=== PATIENT | male | born 1995 | race Caucasian/White ===

== ENCOUNTER → 2023-08-10 15:40 | Outpatient (BNVA) | payer BC, SELFPAY | PROVIDERS: PCP Registered Nurse; Visit Provider Physician Assistant ==

== ENCOUNTER → 2023-08-10 15:40 | Outpatient (BNVA) | payer BC, SELFPAY | PROVIDERS: PCP Registered Nurse; Visit Provider Physician Assistant ==

== ENCOUNTER 2023-09-08 08:36 | Outpatient (REF) | payer BC, SELFPAY ==
--- NOTE | ~2023-09-08 | XR_ITS ---
EXAMINATION: XR CHEST 2 VIEWS CLINICAL INFORMATION: Morbid obesity. COMPARISON: None. TECHNIQUE: Frontal and lateral views of the chest were obtained. FINDINGS: The heart, great vessels, pulmonary vasculature and mediastinum are normal. The lungs show no focal infiltrate, effusion or pneumothorax. There is no acute osseous abnormality. XR/XR chest 2V IMPRESSION: No active cardiopulmonary disease.
--- NOTE | 2023-09-08 10:10 | ECG_ITS ---
Test Reason : e66.01 Blood Pressure : / mmHG Vent. Rate : 067 BPM Atrial Rate : 067 BPM P-R Int : 132 ms QRS Dur : 088 ms QT Int : 390 ms P-R-T Axes : 031 024 015 degrees QTc Int : 412 ms Normal sinus rhythm Normal ECG No previous ECGs available Referred By: Bhakti Linares Electronically Signed By:PHOENIX STORY MD
[2023-09-08 10:17] LABS: MANUAL DIFF FLAG NO
[2023-09-08 11:14] LABS: Basophils Absolute Auto 0.1 X10*3/uL (0.0-0.2); Basophils Percent Auto 1.1 % (0-2); Eosinophils Absolute Auto 0.1 X10*3/uL (0.0-0.4); Eosinophils Percent Auto 1.2 % (0-4); Estimated Average Glucose 108 mg/dL; Hematocrit 41.7 % (42.0-52.0); Hemoglobin 13.8 g/dl (14.0-18.0); Hemoglobin A1c % 5.4 % (<6.0); Imm Gran Abs Auto 0.03 X10*3/uL (0.00-0.03); Imm Gran Pct Auto 0.4 % (0.0-0.4); Lymphocytes Absolute Auto 1.6 X10*3/uL (1.2-4.9); Lymphocytes Percent Auto 21.3 % (20-40); Mean Corpuscular HGB Conc 33.1 g/dl (31.0-36.0); Mean Corpuscular Hemoglobin 27.4 pg (27.0-33.0); Mean Corpuscular Volume 82.7 fL (80.0-98.0); Mean Platelet Volume 10.4 fL (9.4-12.4); Monocytes Absolute Auto 0.5 X10*3/uL (0.1-1.2); Monocytes Percent Auto 6.6 % (2-11); Neutrophils Percent Auto 69.4 % (45-73); Platelet Count 205 X10*3/uL (160-400); Red Blood Count 5.04 X10*6/uL (4.60-5.80); Red Cell Distribution Width 13.2 % (11.0-16.0); White Blood Count 7.3 X10*3/uL (4.8-10.8)
[2023-09-08 11:51] LABS: Alanine Aminotransferase 40 U/L (0-40); Albumin Level 4.4 g/dL (3.5-5.0); Alkaline Phosphatase 54 U/L (39-117); Anion Gap 9 (12-20); Aspartate Amino Transferase 24 U/L (5-37); Bilirubin Total 0.8 mg/dL (0.0-1.0); Blood Urea Nitrogen 11 mg/dL (9-16); C Reactive Protein 2.07 mg/dL (< or = 0.50); Calcium 9.6 mg/dL (8.4-10.2); Carbon Dioxide 28 mmol/L (22-29); Chloride 105 mmol/L (96-108); Cholesterol 143 mg/dL (<200); Estimated Glomerular Filt Rate > 60; Glucose Random 90 mg/dL (60-115); HDL Cholesterol 35 mg/dL (>40); Iron 100 mcg/dL (45-160); LDL Cholesterol Calculated 84 mg/dL (<100); Percent Iron Saturation 43 % (15-50); Sodium 138 mmol/L (135-145); Total Iron Binding Capacity 235 mcg/dL (228-428); Triglycerides 124 mg/dL (<150); Unsaturated Iron Binding 135 ug/dL
[2023-09-08 12:08] LABS: Ferritin 129 ng/mL (20-250)
[2023-09-08 12:15] LABS: Folate 16.3 ng/mL (> or = 4.0); Vitamin B12 754 pg/mL (200-900)
[2023-09-08 12:18] LABS: Insulin 21 uU/mL (2-29)
[2023-09-09 15:54] LABS: Calcium (PTHI) 9.5 mg/dL (8.6-10.3); PTHI 22 pg/mL (16-77)
[2023-09-10 10:50] LABS: H Pylori Breath Test Negative (Negative)
[2023-09-11 16:57] LABS: Zinc 101 mcg/dL (60-130)
[2023-09-12 15:19] LABS: Vitamin B1 11 nmol/L (8-30)
[2023-09-15 02:09] LABS: Vitamin A 43 mcg/dL (38-98)
== END 2023-09-08 08:37 | disposition home or self-care (01) ==
LOC: HO.LAB 08:36
PROVIDERS: PCP Registered Nurse; Visit Provider Physician Assistant
DX: Z01.818 Encounter for other preprocedural examination (principal); E66.01 Morbid (severe) obesity due to excess calories; I10 Essential (primary) hypertension; F41.8 Other specified anxiety disorders
CPT/HCPCS: 36415; 71046; 80053; 80061; 82306; 82607; 82728; 82746; 83013; 83036; 83525; 83540; 83970; 84425; 84443; 84590; 84630; 85025; 86140; 93005; 99211

== ENCOUNTER 2023-09-08 08:36 | Outpatient (AMB) | payer BC, SELFPAY ==
--- NOTE | 2023-09-08 08:53 | A.OFFVIS_ITS ---
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 His goal is to be healthy for his upcoming children and weigh about 260 lbs. he reports first being concerned about his weight since childhood. he has tried multiple methods of weight loss including WW without permanent results. he lives with huis . he works 6 days per week from 5am - 5:30 pm. With work spends nights away from home with work. he wakes at: 4am bed at 9pm Breakfast: 5am - 1 large coffee DD with cream and flavored syrup, breakfast sandwich 10 am - yogurt with cheesesticks with ch ips and granola bar. water or Powerade 0. Lunch: 12 pm - sandwich - ham and cheese, 2 cheesticks , chips and yogurt. water Dinner: 6pm - last night - air fried shrimp with bread and izzy sauce, onion rings. water. (large portions) After dinner: none Other snacks: as above Liquids: No soda, ocassional furit juice and sweetened drinks. milk1% Alcohol intake: once per year, tobacco: none, marijuana: none Exercise: has membership - last gone 3 years ago. JAYLEN: 1 ESS: 2 GERD:0 QOL: 59 [facility] Surgical History (Updated 09/08/23 @ 09:05 by Lacie Juárez CMA) No history of previous surgery Family History Paternal Grandfather Colon cancer Maternal Grandfather Prostate cancer Paternal Grandmother Skin cancer Breast cancer in situ (Reviewed 09/08/23 @ 09:06 by HA Ahn Alcohol intake: current Alcohol intake frequency: holidays/special occasions only Patient Tobacco Use Status: Never used Tobacco Physical Exam Vital Signs: Last Vital Signs Temp 97.1 F 09/08/23 09:08 Pulse 79 09/08/23 09:08 BP 141/75 H 09/08/23 09:08 Pulse Ox 97 09/08/23 09:08 Oxygen Delivery Method Room Air 09/08/23 09:08 BMI result Body Mass Index 53.3 Const General: cooperative, no acute distress and well developed Nutritional Appearance: obese Orientation/consciousness: patient oriented x3 HEENT Head: Yes normal to inspection Neck Neck: Yes normal visual inspection Thyroid: Thyroid normal Resp Effort & Inspection: normal respiratory effort Auscultation: clear to auscultation bilaterally Cardio Rate: regular rate Rhythm: regular rhythm Heart sounds: S1 normal heart sound present, S2 normal heart sound present and no murmurs GI Inspection: No distended, Yes Abdominal panniculus present, Yes obesity and Yes striae Palpation (GI): Soft to palpation, nontender and no guarding Skin General skin exam: no rashes or lesions noted and other (warm and dry) Wounds: no wounds Hair: normal Neuro General: patient oriented x3 Extrem General: Yes no pedal edema and Yes no calf tenderness Psych Attitude: cooperative Thought process: Normal thought process present Thought content: Normal thought content present Insight: Good insight present (Psych) Judgement: Good judgement present (Psych) Assessment & Plan Assessment & Plan (1) Morbid obesity: Code(s): E66.01 - Morbid (severe) obesity due to excess calories Plan: This is a 28 yo man with morbid obesity and HTN who will start SWL program to prepare for bariatric surgery. Blood work, h pylori , CXR, ECG, Abd ULS and UGI have been ordered. he is being scheduled for RD and BH initial consultations. he will start SWL classes and watch at 4 classes before his next appt with Latasha. 1. Adequate sleep of 7-8 hours per night discussed 2. Healthy meal plan - stop snacking and stop all sweetened drinks All meals/MR's need to take 20 minutes to complete coffee with 1% milk only 7 am - protein shake with water or UAM 10am - bar 12 pm - protein shake with water or UAM 3:30 pm- bar 6 pm- dinner of 12 forks lean protein, 12 forks vegetable, 1 serving fruit Exercise - Cardio 4 d week = treadmill at speed 3.0, incline 2-7 - to burn 350 calories. Will purchase elliptical for home use. Pt will purchase body composition analyzer (recommended list given to patient) and weight himself weekly. Next appt with me in 3 weeks. Text me with any questions and weekly weights. Patient is morbidly obese and is not considered stable at this time.?I spent a total of 60 minutes reviewing/updating records, examining the patient and counseling the patient on weight management as detailed above. (2) HTN (hypertension), benign: Code(s): I10 - Essential (primary) hypertension Plan: weight loss (3) Anxiety with depression: Code(s): F41.8 - Other specified anxiety disorders Plan: continue meds Orders: Orders IRON PROFILE Today E66.01 - Morbid (severe) obesity due to excess calories, F41.8 - Other specified anxiety disorders, I10 - Essential (primary) hypertension, Z01.818 - Encounter for other preprocedural examination Vitamin B12 and Folate Today E66.01 - Morbid (severe) obesity due to excess calories, F41.8 - Other specified anxiety disorders, I10 - Essential (primary) hypertension, Z01.818 - Encounter for other preprocedural examination Comprehensive Met. Panel Today E66.01 - Morbid (severe) obesity due to excess calories, F41.8 - Other specified anxiety disorders, I10 - Essential (primary) hypertension, Z01.818 - Encounter for other preprocedural examination Ferritin Today E66.01 - Morbid (severe) obesity due to excess calories, F41.8 - Other specified anxiety disorders, I10 - Essential (primary) hypertension, Z01.818 - Encounter for other preprocedural examination TSH reflex Free T4 Today E66.01 - Morbid (severe) obesity due to excess calories, F41.8 - Other specified anxiety disorders, I10 - Essential (primary) hypertension, Z01.818 - Encounter for other preprocedural examination Hemoglobin A1c Today E66.01 - Morbid (severe) obesity due to excess calories, F41.8 - Other specified anxiety disorders, I10 - Essential (primary) hypertension, Z01.818 - Encounter for other preprocedural examination US abdomen comp w elastography Today E66.01 - Morbid (severe) obesity due to excess calories, F41.8 - Other specified anxiety disorders, I10 - Essential (primary) hypertension, Z01.818 - Encounter for other preprocedural examination ECG 12 lead EKG Today E66.01 - Morbid (severe) obesity due to excess calories, F41.8 - Other specified anxiety disorders, I10 - Essential (primary) hypertension, Z01.818 - Encounter for other preprocedural examination FL upper GI w air Today E66.01 - Morbid (severe) obesity due to excess calories, F41.8 - Other specified anxiety disorders, I10 - Essential (primary) hypertension, Z01.818 - Encounter for other preprocedural examination Insulin Today E66.01 - Morbid (severe) obesity due to excess calories, F41.8 - Other specified anxiety disorders, I10 - Essential (primary) hypertension, Z01.818 - Encounter for other preprocedural examination Lipid Panel Today E66.01 - Morbid (severe) obesity due to excess calories, F41.8 - Other specified anxiety disorders, I10 - Essential (primary) hypertension, Z01.818 - Encounter for other preprocedural examination Complete Blood Count Auto Diff Today E66.01 - Morbid (severe) obesity due to excess calories, F41.8 - Other specified anxiety disorders, I10 - Essential (primary) hypertension, Z01.818 - Encounter for other preprocedural examination Zinc Today E66.01 - Morbid (severe) obesity due to excess calories, F41.8 - Other specified anxiety disorders, I10 - Essential (primary) hypertension, Z01.818 - Encounter for other preprocedural examination Vitamin B1 Today E66.01 - Morbid (severe) obesity due to excess calories, F41.8 - Other specified anxiety disorders, I10 - Essential (primary) hypertension, Z01.818 - Encounter for other preprocedural examination Vitamin A Today E66.01 - Morbid (severe) obesity due to excess calories, F41.8 - Other specified anxiety disorders, I10 - Essential (primary) hypertension, Z01.818 - Encounter for other preprocedural examination C Reactive Protein Today E66.01 - Morbid (severe) obesity due to excess calories, F41.8 - Other specified anxiety disorders, I10 - Essential (primary) hypertension, Z01.818 - Encounter for other preprocedural examination PTHI Today E66.01 - Morbid (severe) obesity due to excess calories, F41.8 - Other specified anxiety disorders, I10 - Essential (primary) hypertension, Z01.818 - Encounter for other preprocedural examination H Pylori Breath Test Today E66.01 - Morbid (severe) obesity due to excess burton ories, F41.8 - Other specified anxiety disorders, I10 - Essential (primary) hypertension, Z01.818 - Encounter for other preprocedural examination Vitamin D 25-OH Total Today E66.01 - Morbid (severe) obesity due to excess calories, F41.8 - Other specified anxiety disorders, I10 - Essential (primary) hypertension, Z01.818 - Encounter for other preprocedural examination XR chest 2V Today E66.01 - Morbid (severe) obesity due to excess calories, F41.8 - Other specified anxiety disorders, I10 - Essential (primary) hypertension, Z01.818 - Encounter for other preprocedural examination Referrals Behavioral Health Referral E66.01 - Morbid (severe) obesity due to excess calories, F41.8 - Other specified anxiety disorders, I10 - Essential (primary) hypertension, Z01.818 - Encounter for other preprocedural examination Nutrition/Dietitian Referral E66.01 - Morbid (severe) obesity due to excess calories, F41.8 - Other specified anxiety disorders, I10 - Essential (primary) hypertension, Z01.818 - Encounter for other preprocedural examination Coding Level of Care Code New Pt Level 5 (45546) Diagnoses Morbid obesity E66.01 HTN (hypertension), benign I10 Anxiety with depression F41.8
[2023-09-08 09:08] VITALS: BP 141/75; PULSE 79; TEMP 36.2; O2SAT 97; BMI 53.3
== END 2023-09-08 09:58 | disposition home or self-care (01) ==
PROVIDERS: PCP Registered Nurse; Visit Provider Physician Assistant
DX: E66.01 Morbid (severe) obesity due to excess calories (principal); Z68.43 Body mass index [BMI] 50.0-59.9, adult; I10 Essential (primary) hypertension; F41.8 Other specified anxiety disorders
CPT/HCPCS: 99205

== ENCOUNTER 2023-09-29 09:24 | Outpatient (AMB) | payer BC, SELFPAY ==
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
== END 2023-09-29 09:42 | disposition home or self-care (01) ==
LOC: HO.HBST 09:24
PROVIDERS: PCP Registered Nurse; Visit Provider Counselor Mental Health
DX: Z86.59 Personal history of other mental and behavioral disorders (principal); E66.01 Morbid (severe) obesity due to excess calories
CPT/HCPCS: 90791

== ENCOUNTER → 2023-09-29 09:24 | Outpatient (BNVA) | payer BC, SELFPAY | PROVIDERS: PCP Registered Nurse; Visit Provider Counselor Mental Health ==

== ENCOUNTER 2023-09-30 09:00 | Outpatient (AMB) | payer BC, SELFPAY ==
--- NOTE | 2023-09-30 08:53 | A.OFFVIS_ITS ---
Intake VS Expanded 09/30/23 09:04 Height 6 ft Weight 372 lb 6 oz BMI 50.5 Intake Visit Reasons: VIDEO F/U SWL Allergies No Known Allergies Allergy (Verified 09/08/23 09:02) Medication List - Last Reconciled 09/30/23 by Bhakti Linares PA-C amlodipine 10 mg PO DAILY buspirone 5 mg PO BID cholecalciferol (vitamin D3) 25 mcg PO DAILY escitalopram oxalate (Lexapro) 20 mg PO DAILY iron,carbonyl-vitamin C 65 mg iron- 125 mg (Vitron-C) 1 tab PO BEDTIME metoprolol succinate ER 25 mg PO DAILY valsartan 320 mg PO DAILY HPI HPI Comments History of Present Illness Details This is the patients second appt for SWL. Starting weight was 393.2 lbs on 09/08/23. TBWL is 25.5 lbs or 6.4% TBWL. Meal plan: not hungry, feels good green tea sometimes - nothing in it 6am - Premier powder with water 10am - Atkins or Built bar 12pm - same shake 3pm - bar 6pm - fish, chicken or seafood - 12 fork s and vegetables 12 forks, and an apple Exercise plan: elliptical to be delivered this week. Goes to gym - 4d/ week - elliptical for 1 hour - 300 calories (?) or treadmill speed 3- 4.5, incline up to 10 for >350 calories - 45 minutes. Treadmill at home. Pre op work up completed as follows: SWL classes - 12/24 appts - cleared RD appts - initial 10/05 H pylori - negative Labs - anemia, Vit D defic CXR and ECG - both normal ULS and UGI - 10/14 and 10/26 [facility] Surgical History (Updated 09/08/23 @ 09:05 by Lacie Juárez CMA) No history of previous surgery Family History Paternal Grandfather Colon cancer Maternal Grandfather Prostate cancer Paternal Grandmother Skin cancer Breast cancer in situ Social History Alcohol intake: current Alcohol intake frequency: holidays/special occasions only Patient Tobacco Use Status: Never used Tobacco Assessment & Plan Assessment & Plan (1) Morbid obesity: Code(s): E66.01 - Morbid (severe) obesity due to excess calories Plan: Pt is doing very well with 25.5 lbs or 6.4% TBWL. He will continue to complete his pre op work up - all appts reviewed with him. Meal plan - no changes made Exercise - gym 4d/ week - 400 calories - 10cal/minute. Elliptical - 10 burton/min for 400 calories. Next appt with 10/28 - then appt with Dr Torres for surgical discussion. Patient is still morbidly obese and is not considered stable at this time. I spent 28 minutes in total speaking with the patient via video conference counseling , reviewing records and charting in patients chart. . (2) HTN (hypertension), benign: Code(s): I10 - Essential (primary) hypertension Plan see above Telehealth Telehealth Location of provider rendering services: practice address Location of patient: address on file Patient Identification confirmed using: Name, : Yes Telehealth method: video Patient verbally consented to treatment: Yes Patient verbally consented to billing insurance company: Yes Patient informed of any privacy concerns related to visit: Yes Coding Level of Care Code Tele Est Pt Level 4 (37645) Diagnoses Morbid obesity E66.01 HTN (hypertension), benign I10
[2023-09-30 09:04] VITALS: BMI 50.5
== END 2023-09-30 09:27 | disposition home or self-care (01) ==
LOC: HO.HBS 09:26
PROVIDERS: PCP Registered Nurse; Visit Provider Physician Assistant
DX: E66.01 Morbid (severe) obesity due to excess calories (principal); I10 Essential (primary) hypertension
CPT/HCPCS: 99213

== ENCOUNTER → 2023-09-30 09:00 | Outpatient (BNVA) | payer BC, SELFPAY | PROVIDERS: PCP Registered Nurse; Visit Provider Physician Assistant ==

== ENCOUNTER 2023-10-05 10:06 | Outpatient (AMB) | payer BC, SELFPAY ==
--- NOTE | 2023-10-05 09:55 | A.OFFVIS_ITS ---
Intake Intake Visit Reasons: VIDEO Initial Nutrition SWL Allergies No Known Allergies Allergy (Verified 09/08/23 09:02) HPI Nutrition Presentation Reason for consult elevated BMI Diet Assmnt Details Doing great . one barrier he has learned to overcome is dealing with family situations involving food. dinner last night anmol hill Built, atkins, pure protein got , wants to start a family . This is his motivation for habit change and pursuing surgery Exercise: 3-4x per week go9ing to the gym, elliptical and treadmill yesterday did a 7 mile walk outside with the dog We talked about his positive outlook on exercise and focusing on joyful movement SWL online classes: 02/23 . reviewed post op nutrition Dietary counseling reduction Who buys your food self and spouse Who prepares/cooks your food self and spouse Meal frequency regular: breakfast (sandwich and 2 wake up wraps), lunch (sandwich w cheese stick, granola bar, banana; or leftover ), dinner ( cooked pasta) and snacks (10am cheese, chips, yogurt ) Lifestyle Eating out 4 or more times/week (morning daily, din ner 2x per wk) Food frequency Water: daily, Soda: never, Juice: never, Coffee: daily and Sports/energy drinks: daily (powerade zero) Diagnosis Nutrition problem #1 overweight/obesity As related to (etiology) #1 excess energy intake and physical inactivity As evidenced by (sign/symptom) #1 high BMI Nutrition problem #2 overweight/obesity Monitoring/Goals Nutrition problem monitoring total energy intake, level of knowledge/skill, total PRO intake, total CHO intake, weight and oral fluids Outcome progress progressing Learning/Education Readiness to learn excellent Stages of change action Educational materials provided Yes Most Recent Diabetes Results: Cholesterol 143 mg/dL (<200) 09/08/23 HDL Cholesterol 35 mg/dL (>40) L 09/08/23 Triglycerides 124 mg/dL (<150) 09/08/23 Creatinine 0.63 mg/dL (0.5-1.4) 09/08/23 Blood Urea Nitrogen 11 mg/dL (9-16) 09/08/23 Sodium 138 mmol/L (135-145) 09/08/23 Potassium 4.0 mmol/L (3.3-5.1) 09/08/23 Chloride 105 mmol/L (96-108) 09/08/23 Carbon Dioxide 28 mmol/L (22-29) 09/08/23 Calcium 9.6 mg/dL (8.4-10.2) 09/08/23 AST 24 U/L (5-37) 09/08/23 ALT 40 U/L (0-40) 09/08/23 Total Protein 8.0 g/dL (6.5-8.0) 09/08/23 Albumin 4.4 g/dL (3.5-5.0) 09/08/23 PFSH Surgical History (Updated 09/08/23 @ 09:05 by Lacie Juárez CMA) No history of previous surgery Family History Paternal Grandfather Colon cancer Maternal Grandfather Prostate cancer Paternal Grandmother Skin cancer Breast cancer in situ Social History Alcohol intake: current Alcohol intake frequency: holidays/special occasions only Patient Tobacco Use Status: Never used Tobacco Assessment & Plan Assessment & Plan (1) Morbid obesity: Code(s): E66.01 - Morbid (severe) obesity due to excess calories Plan Patient is cleared from a nutrition standpoint for bariatric surgery. Educational requirements have been completed. Reviewed vitamin supplementation and commitment to protein shake for several months post surgery. Encouraged communication with office as needed Telehealth Telehealth Location of provider rendering services: practice address Location of patient: other (in his car, [place] , not driving ) Patient Identification confirmed using: Name, : Yes Telehealth method: video Patient verbally consented to treatment: Yes Patient verbally consented to billing insurance company: Yes Patient informed of any privacy concerns related to visit: Yes Minutes spent on Phone/Video with Pt.: 25 Coding Level of Care Code Nutr Indiv Intake (32871) Diagnoses Morbid obesity E66.01 Time Spent (min) 25
== END 2023-10-05 10:20 | disposition home or self-care (01) ==
LOC: HO.HBS 10:06
PROVIDERS: PCP Registered Nurse; Visit Provider Dietitian, Registered
DX: E66.01 Morbid (severe) obesity due to excess calories (principal)

== ENCOUNTER → 2023-10-05 10:06 | Outpatient (BNVA) | payer BC, SELFPAY | PROVIDERS: PCP Registered Nurse; Visit Provider Dietitian, Registered | DX: E66.01 Morbid (severe) obesity due to excess calories (principal); Z71.3 Dietary counseling and surveillance | CPT/HCPCS: 97802 ==

== ENCOUNTER 2023-10-14 08:04 | Outpatient (REF) | payer BC, SELFPAY ==
--- NOTE | ~2023-10-14 | US_ITS ---
EXAMINATION: US COMPLETE ABDOMEN WITH LIVER ELASTOGRAPHY CLINICAL INFORMATION: Obesity. COMPARISON: None available. TECHNIQUE: Real-time imaging of the abdominal viscera. Noninvasive ultrasound liver fibrosis assessment is performed using Sharla ElastPQ point quantification shear wave elastography (2D-SWE) with a C5-2 MHz transducer. Multiple elastography samples are obtained. FINDINGS: PANCREAS: Normal. The visualized pancreatic head and body are normal in appearance. The remainder of the pancreas is obscured from visualization by the overlying bowel gas. ABDOMINAL AORTA: The proximal, middle, and distal aortic segments are normal in caliber. INFERIOR VENA CAVA: Visualized portions are normal. LIVER: There is hepatomegaly. The liver demonstrates normal contour and generally increased echogenicity. No focal lesion or intrahepatic biliary duct dilatation. The right lobe measures 19.9 cm in length. The left lobe measures 12.9 cm in length. Portal flow is towards the liver (hepatopetal). Shear wave liver elastography median stiffness is 0.83 m/s (reference: normal median stiffness is 1.3 m/s or less). IQR/median stiffness to assess sampling precision is 0.28 (reference: good quality data set is IQR/median stiffness of 0.15 or less). GALLBLADDER: Normal. The gallbladder is physiologically distended without evidence of stones, sludge, polyps, wall thickening or pericholecystic fluid. COMMON BILE DUCT: Normal in caliber measuring 0.4 cm in diameter. RIGHT KIDNEY: Normal. No hydronephrosis. No renal calculi or focal parenchymal lesions. The kidney measures 13.4 cm in maximum dimension. LEFT KIDNEY: Normal. No hydronephrosis. No renal calculi or focal parenchymal lesions. The kidney measures 13.7 cm in maximum dimension. SPLEEN: There is no focal finding. The spleen measures 20.2 cm in maximum dimension. FREE FLUID: None. US/US abdomen comp w elastography IMPRESSION: 1. There is generalized increase in hepatic echotexture, consistent with fatty infiltration or hepatocellular disease. Please correlate clinically. No focal hepatic mass or intrahepatic biliary dilatation is seen. 2. There is hepatomegaly. 3. Liver elastography: Measurements are consistent with a high probability of normal liver stiffness. 4. There is splenomegaly. REFERENCE: Society of Radiologists in Ultrasound Liver Stiffness Thresholds (2020): LIVER STIFFNESS THRESHOLDS: *Liver Stiffness equal or less than 1.3 m/s: High probability of being normal. *Liver Stiffness less than 1.7 m/s: In the absence of other known clinical signs, rules out compensated advanced chronic liver disease. *Liver Stiffness 1.7-2.1 m/s: Suggestive of compensated advanced chronic liver disease but need further test for confirmation. *Liver Stiffness over 2.1 m/s: Rules in compensated advanced chronic liver disease. *Liver Stiffness over 2.4 m/s: Suggestive of clinically significant portal hypertension. QUALITY OF DATA SET: *IQR/Median value equal or less than 0.15 implies a quality data set. *IQR/Median value over 0.15 implies a poor quality data set. SIGNIFICANT CHANGE FROM PRIOR EXAM: Significant change if liver stiffness measurement is 10% or greater from prior exam. OTHER CONSIDERATIONS: The stage of liver fibrosis may be overestimated in the setting of acute hepatitis, liver inflammation, elevated liver function tests, hepatic vascular congestion, obstructive cholestasis, non-fasting state, and infiltrative diseases such as amyloidosis and lymphoma. In some patients with NAFLD, the liver stiffness thresholds for compensated advanced chronic liver disease may be lower. In causes other than viral hepatitis and NAFLD, liver stiffness thresholds are not well established.
== END 2023-10-14 08:05 | disposition home or self-care (01) ==
LOC: HO.US 08:04
PROVIDERS: PCP Registered Nurse; Visit Provider Physician Assistant
DX: Z01.818 Encounter for other preprocedural examination (principal); E66.01 Morbid (severe) obesity due to excess calories; I10 Essential (primary) hypertension; F41.8 Other specified anxiety disorders
CPT/HCPCS: 76705; 76981

== ENCOUNTER 2023-10-26 10:06 | Outpatient (REF) | payer BC, SELFPAY ==
--- NOTE | ~2023-10-26 | FL_ITS ---
EXAMINATION: XR FLUOROSCOPY UPPER GI WITH AIR CLINICAL INFORMATION: Preop evaluation prior to bariatric surgery COMPARISON: None TECHNIQUE: Fluoroscopic air contrast upper GI examination was performed utilizing standard techniques with thin and thick barium and effervescent granules. Numerous spot images were obtained. FINDINGS: Dual and single contrast images of the esophagus demonstrate normal caliber, contour, and mucosal pattern. No evidence of stricture, mass, or ulcerations identified. Esophageal peristalsis was normal. No evidence of hiatus hernia identified. No significant gastroesophageal reflux was seen during the course of the examination and on reflux views. Dual contrast and single contrast images of the stomach demonstrated normal contour and mucosal pattern without evidence of mass, ulceration, or other abnormality. Contrast freely passed into the gastric antrum and duodenal bulb without delay. Single and air-contrast images of the duodenal bulb demonstrate no abnormality. The duodenal sweep has a normal appearance, course, and mucosal fold appearance. The imaged proximal jejunum has a normal fold pattern and caliber. FLUOROSCOPY TIME: 2 minutes 20 seconds Number of Spot Images: 11 Number of Cine: 8 DOSE AREA PRODUCT: [id number] uGy-m2 (microgray-meter squared) FL/FL upper GI w air IMPRESSION: Unremarkable upper GI examination This procedure was performed by Joe Min PA-C, and supervised by Dr. Rivera
== END 2023-10-26 10:07 | disposition home or self-care (01) ==
LOC: HO.XRAY 10:06
PROVIDERS: PCP Registered Nurse; Visit Provider Physician Assistant
DX: Z01.818 Encounter for other preprocedural examination (principal); E66.01 Morbid (severe) obesity due to excess calories
CPT/HCPCS: 74246

== ENCOUNTER → 2023-10-26 10:10 | Outpatient (BNV) | payer BC, SELFPAY | PROVIDERS: PCP Registered Nurse; Visit Provider Radiology Diagnostic Radiology | DX: Z01.818 Encounter for other preprocedural examination (principal); E66.01 Morbid (severe) obesity due to excess calories | CPT/HCPCS: 74246 ==

== ENCOUNTER 2023-10-30 08:30 | Outpatient (AMB) | payer BC, SELFPAY ==
--- NOTE | 2023-10-30 08:36 | A.OFFVIS_ITS ---
Intake VS Expanded 10/30/23 08:38 Height 6 ft Weight 353 lb 2 oz BMI 47.9 Intake Visit Reasons: TV F/U SWL Allergies No Known Allergies Allergy (Verified 09/08/23 09:02) Medication List - Last Reconciled 10/30/23 by Bhakti Linares PA-C amlodipine 10 mg PO DAILY buspirone 5 mg PO BID cholecalciferol (vitamin D3) 25 mcg PO DAILY escitalopram oxalate (Lexapro) 20 mg PO DAILY iron,carbonyl-vitamin C 65 mg iron- 125 mg (Vitron-C) 1 tab PO BEDTIME metoprolol succinate ER 25 mg PO DAILY valsartan 320 mg PO DAILY HPI HPI Comments History of Present Illness Details [facility] follow up. [employer] weight of 393.2 lbs, TBWL is 40 lbs. >10%. Patient has many questions regarding bariatric surgery and is questioning whether it is the right thing for him to do now - understands he still needs to lose > 140 lbs to be healthy. 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 Exercise - 5-6 d/week up t 500 calories per day on elliptical, up to level 12. Meal plan - wakes at 5 am 6am - Premier powder with water 10 am - Quest bar 12pm - another shake 3pm- another bar eggs with turkey sausage or salad with chicken. Each dinner-12 forks each of protein and vegetables. An apple Pre op work up completed as follows: [facility] classes - 05/26 BH appts - cleared RD appts - initial 10/05, cleared H pylori - negative Labs - anemia, Vit D defic CXR and ECG - both normal ULS -hepatomegaly (L 19.9, R 12.9 cms) and splenomegaly UGI - normal PFSH Surgical History No history of previous surgery Family History Paternal Grandfather Colon cancer Maternal Grandfather Prostate cancer Paternal Grandmother Skin cancer Breast cancer in situ Social History Alcohol intake: current Alcohol intake frequency: holidays/special occasions only Patient Tobacco Use Status: Never used Tobacco Physical Exam Vital Signs: BMI result Body Mass Index 47.9 Assessment & Plan Assessment & Plan (1) Morbid obesity: Code(s): E66.01 - Morbid (severe) obesity due to excess calories Plan: We discussed his co-morbidities and how bariatric surgery is an excellent tool to lose enough weight for these to resolve.I answered his questions regarding post op hydration and reassured him that he will be able to stay hydrated, but will not be able to chug water right after surgery.Will need to carry water with him during work. He has completed all pre op workup including 10% TBWL and will have his next appt with Dr Torres to further discuss bariatric surgery. Patient is still morbidly obese and is not considered stable at this time. I spent 30 minutes in total speaking with the patient via video conference counseling , reviewing records and charting in patients chart. . (2) HTN (hypertension), benign: Code(s): I10 - Essential (primary) hypertension Plan: controlled (3) Steatosis, liver: Code(s): K76.0 - Fatty (change of) liver, not elsewhere classified Plan: continued weight loss (4) Hepatomegaly: Code(s): R16.0 - Hepatomegaly, not elsewhere classified Plan see above Telehealth Telehealth Location of provider rendering services: practice address Location of patient: address on file Patient Identification confirmed using: Name, : Yes Telehealth method: video Patient verbally consented to treatment: Yes Patient verbally consented to billing insurance company: Yes Patient informed of any privacy concerns related to visit: Yes Coding Level of Care Code Tele Est Pt Level 4 (91114) Diagnoses Morbid obesity E66.01 HTN (hypertension), benign I10 Steatosis, liver K76.0 Hepatomegaly R16.0
[2023-10-30 08:38] VITALS: BMI 47.9
== END 2023-10-30 11:58 | disposition home or self-care (01) ==
PROVIDERS: PCP Registered Nurse; Referring Provider Registered Nurse; Visit Provider Physician Assistant
DX: E66.01 Morbid (severe) obesity due to excess calories (principal); Z68.42 Body mass index [BMI] 45.0-49.9, adult; I10 Essential (primary) hypertension; K76.0 Fatty (change of) liver, not elsewhere classified; R16.0 Hepatomegaly, not elsewhere classified
CPT/HCPCS: 99214

== ENCOUNTER → 2023-10-30 08:30 | Outpatient (BNVA) | payer BC, SELFPAY | PROVIDERS: PCP Registered Nurse; Visit Provider Physician Assistant | DX: E66.01 Morbid (severe) obesity due to excess calories (principal); I10 Essential (primary) hypertension ==

== ENCOUNTER 2023-11-23 07:59 | Outpatient (AMB) | payer BC, SELFPAY ==
--- NOTE | 2023-11-23 08:23 | MHC.OFFVISWM ---
Intake VS Expanded 11/23/23 08:49 Height 6 ft Weight 337 lb 6 oz BMI 45.8 Body Fat % 50.1 Body Fat Mass 169.1 Fat Free Mass 168.4 Visceral Fat Rating 28 Body Water % 36 Body Water Mass 121.5 Basal Metabolic Rate/Score 2,023 Intake Visit Reasons: TV Consult/Transfer Bhakti Allergies No Known Allergies Allergy (Verified 11/23/23 08:23) Medication List - Last Reconciled 11/23/23 by Josh Raymond MD amlodipine 10 mg PO DAILY buspirone 5 mg PO BID cholecalciferol (vitamin D3) 25 mcg PO DAILY escitalopram oxalate (Lexapro) 20 mg PO DAILY iron,carbonyl-vitamin C 65 mg iron- 125 mg (Vitron-C) 1 tab PO BEDTIME metoprolol succinate ER 25 mg PO DAILY valsartan 320 mg PO DAILY HPI TV Consult/Transfer Bhakti HPI Details Start time: 8.05am, End time: 8.58am ?I spent 48 minutes speaking with the patient on the phone plus an additional 5 minutes reviewing and updating records for a total of 53 minutes HPI Comments History of Present Illness Details Overall weight loss:60.6lbs, or 15.22% TBWL Is doing 2 Premier powdered protein shakes (2 scoops in water), 2 Quest protein bars and one meal (11 forks of meat and 11 forks vegetables) Exercise: Gym x5/wk doing the Elliptical for 400-500 calories PFSH Surgical History No history of previous surgery Family History Paternal Grandfather Colon cancer Maternal Grandfather Prostate cancer Paternal Grandmother Skin cancer Breast cancer in situ Social History Alcohol intake: current Alcohol intake frequency: holidays/special occasions only Patient Tobacco Use Status: Never used Tobacco Assessment & Plan Assessment & Plan (1) Morbid obesity: Code(s): E66.01 - Morbid (severe) obesity due to excess calories Plan: 1. Change nutritional plan to one Premier shake with ONE scoop in 8oz water, one Premier powdered protein shake (2 scoops in water), 2 Quest protein bars and one meal (11 forks of meat and 11 forks vegetables) 2. Exercise: continue Gym x5/wk doing the Elliptical for 400-500 calories. Goal is to burn at least 2000 calories per week on the Elliptical 3. Consider also trying the low fat unsweetened almond milk instead of the water for your shakes Telehealth Telehealth Location of provider rendering services: practice address Location of patient: address on file Patient Identification confirmed using: Name, : Yes Telehealth method: voice only Patient verbally consented to treatment: Yes Patient verbally consented to billing insurance company: Yes Patient informed of any privacy concerns related to visit: Yes Minutes spent on Phone/Video with Pt.: 53 Coding Level of Care Code Tele Est Pt Level 5 (39901) Diagnoses Morbid obesity E66.01 Time Spent (min) 53
[2023-11-23 08:49] VITALS: BMI 45.8
== END 2023-11-23 08:59 | disposition home or self-care (01) ==
LOC: HO.HBS 08:00
PROVIDERS: PCP Registered Nurse; Visit Provider Surgery
DX: E66.01 Morbid (severe) obesity due to excess calories (principal); Z68.42 Body mass index [BMI] 45.0-49.9, adult
CPT/HCPCS: 99443

== ENCOUNTER → 2023-11-23 07:59 | Outpatient (BNVA) | payer BC, SELFPAY | PROVIDERS: PCP Registered Nurse; Visit Provider Surgery ==